=== PATIENT | female | born 1985 | race Caucasian/White ===

== ENCOUNTER 2016-11-20 06:35 | Emergency (ER) | payer OTHER ==
[2016-11-20 08:10] LABS: BASO % 0.2 % (0.1-1.2); EOS # 0.2 10_X3_uL (0.0-0.4); EOS % 1.9 % (0.7-5.8); GRAN # 7.5 10_X3_uL (1.6-6.1); GRAN % 69.7 % (34.0-71.1); HEMATOCRIT 39.5 % (34-45); HEMOGLOBIN 13.8 g/dL (11.2-15.7); LYMPH # 1.9 10_X3_uL (1.2-3.7); MEAN CORPUSCULAR HEMOGLOBIN 32.5 pg (27.0-33.0); MEAN CORPUSCULAR HGB CONC 34.9 g/dL (32.0-36.0); MEAN CORPUSCULAR VOLUME 92.9 fL (79-95); MEAN PLATELET VOLUME 9.7 fl (7.5-11.5); MONO # 1.1 10_X3_uL (0.2-0.9); MONO % 10.5 % (4.7-12.5); RED BLOOD COUNT 4.25 x10_6/uL (3.9-5.2); RED CELL DISTRIBUTION WIDTH 12.6 % (11.7-14.4); WHITE BLOOD COUNT 10.7 x10_3/uL (4.0-10.0)
[2016-11-20 08:19] LABS: BLOOD UREA NITROGEN 6 mg/dL (7-18); CALCIUM 8.9 mg/dL (8.7-10.7); CARBON DIOXIDE 25 mmol/L (21-32); CREATININE 0.6 mg/dL (0.6-1.3); GLUCOSE,RANDOM 115 mg/dL (70-99); SODIUM 134 mmol/L (136-145)
[2016-11-20 08:21] LABS: POTASSIUM 4.1 mmol/L (3.5-5.1)
[2016-11-20 08:27] LABS: LYMPH % 17.7 % (19.3-51.7); PLATELET COUNT 218 x10_3/uL (182-369)
== END 2016-11-20 10:36 | disposition short-term general hospital (02) ==
LOC: ER 06:35
PROVIDERS: Internal Medicine
DX: M65.18 Other infective (teno)synovitis, other site (principal); Z86.14 Personal history of Methicillin resistant Staphylococcus aureus infection; Z98.51 Tubal ligation status; F17.210 Nicotine dependence, cigarettes, uncomplicated; Z79.899 Other long term (current) drug therapy; Z88.2 Allergy status to sulfonamides; Z88.5 Allergy status to narcotic agent; Z88.1 Allergy status to other antibiotic agents; Z88.8 Allergy status to other drugs, medicaments and biological substances
CPT/HCPCS: 36415; 80048; 85025; 87040; 96365; 99070; 99284-25; J3370; J7050